=== PATIENT | male | born 1955 | race Caucasian/White ===

== ENCOUNTER 2020-08-02 13:43 | Emergency (ER) | payer OTHER ==
[~2020-08-02 13:43] MED LIST: CALCIUM CHLORIDE 10% 1 GM/10 ML *VIAL IVPUSH ONE; EPINEPHrine 1:10,000 (P-F SYR) 1 MG/10 ML DISP.SYRIN IVPUSH ONE; SODIUM BICARBONATE 8.4% 50 MEQ/50 ML VIAL IVPUSH ONE
== END 2020-08-02 16:30 | disposition expired ==
LOC: FER 13:43
PROC: 3E033GC Introduction of Other Therapeutic Substance into Peripheral Vein, Percutaneous Approach (ICD-10-PCS; principal; 2020-08-02)
PROC: 3E033GC Introduction of Other Therapeutic Substance into Peripheral Vein, Percutaneous Approach (ICD-10-PCS; 2020-08-02)
PROC: 3E033GC Introduction of Other Therapeutic Substance into Peripheral Vein, Percutaneous Approach (ICD-10-PCS; 2020-08-02)
DX: I46.9 Cardiac arrest, cause unspecified (principal)
CPT/HCPCS: 99284-25